=== PATIENT | male | born 1985 | race Caucasian/White ===

== ENCOUNTER 2023-03-30 13:12 | Emergency (ER) | payer BC ==
[2023-03-30] MEDS ORDERED: LORazepam 0.5 MG Tab PO ONE (13:15)
[2023-03-30] MEDS ORDERED: ALPRAZolam 0.25 MG Tab PO ONE (13:15)
[2023-03-30] MEDS ORDERED: Diazepam 5 MG Tab ONE (13:16)
[2023-03-30] MEDS ORDERED: Ondansetron 4 MG Tab.DIS PO ONE (13:16)
[2023-03-30] MEDS ORDERED: Ondansetron 4 MG Tab.DIS ONE (13:16)
[2023-03-30] MEDS ORDERED: LORazepam 0.5 MG Tab ONE (13:16)
[2023-03-30] MEDS ORDERED: Diazepam 5 MG Tab PO ONE (13:16)
[2023-03-30] MEDS ORDERED: ALPRAZolam 0.25 MG Tab PO PRN (13:43)
== END 2023-03-30 13:52 | disposition home or self-care (01) ==
LOC: KA.ED 13:12
DX: F41.0 Panic disorder [episodic paroxysmal anxiety] (principal); F17.210 Nicotine dependence, cigarettes, uncomplicated
CPT/HCPCS: 99283; A9270